=== PATIENT | male | born 1970 | race African-American/Black ===

== ENCOUNTER 2021-01-11 11:40 | Emergency (ER) | payer OTHER ==
[~2021-01-11] VITALS: Ht 190.5 cm; Wt 86.0 kg
[2021-01-11] MEDS ORDERED: KETOROLAC 60MG/2ML VIAL IM STA (12:23)
[2021-01-11 13:09] VITALS: BP 166/106
[2021-01-11] MEDS ORDERED: GABA-532 PO (13:21)
[2021-01-11] MEDS ORDERED: NAPR500T7 PO (13:21)
== END 2021-01-11 13:50 | disposition home or self-care (01) ==
LOC: ER 11:40
DX: M54.41 Lumbago with sciatica, right side (principal); J45.909 Unspecified asthma, uncomplicated; Z87.828 Personal history of other (healed) physical injury and trauma
CPT/HCPCS: 96372; 99283; J1885